=== PATIENT | male | born 1955 | race Caucasian/White ===

== ENCOUNTER 2022-04-16 10:49 | Day surgery (SDC) | payer OTHER, SELFPAY ==
[2022-04-14 14:53] VITALS: BMI 29.0
[2022-04-16] VITALS (14 sets, daily range): BP systolic 114–152; BP diastolic 59–90; PULSE 72–93; RESP 10–20; TEMP 35.9–37.2; O2SAT 88–96; BMI 29.0
--- NOTE | 2022-04-16 | PATH_ITS ---
[facility] Accession Number: [id number] No. of containers..01 Tissue . 01 Material submitted: . gallbladder - GALLBLADDER . 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 Cholelithiasis. No dysplasia or neoplasia identified. See comment. [facility] 04/24/2022 1054 Local . 01 Comment: Additonal secions were submitted for microscopic evaluation. Selected slides (A1) from this case has also been reviewed by Dr. Deangelo Wellington, gastrointestinal pathologist, who concurs with the interpretation of pyloric gland metaplasia. . 01 Electronically signed: . Barb Badillo MD, Pathologist NPI- [id number] . 01 Gross description: . The specimen is received in formalin labeled with the patient's name, , and gallbladder, and consists of a disrupted gallbladder measuring 9.9 x 2.8 x 2.0 cm. The serosa is robertson and smooth while the hepatic surface is roughened and significant for a full-thickness defect measuring 1.0 cm in greatest dimension. The cystic duct is received closed with a clamp, is inked blue, and no pericystic lymph node is identified. The lumen contains green viscous bile and numerous black to green faceted calculi measuring up to 1.2 cm in greatest dimension grossly obstructing the cystic duct. The mucosa is green to brown and velvety with multiple pinpoint yellow areas of discoloration consistent with cholesterol deposits and a yellow-green polypoid structure measuring 0.3 cm in greatest dimension. No additional polyps or lesions are identified, and the brink average 0.3 cm thick. System Controller sections to include the cystic duct margin and full-thickness sections with polyp are submitted in cassette A1. ([id number]) . . Additional sections are submitted in cassettes A2-A4. ([id number]) /MRV 04/22/2022 0931 Local . 01 Pathologist provided ICD-10: K42.9, K80.50, K80.10 . 01 CPT . 544663 Specimen Comment: A courtesy copy of this report has been sent to [phone] Performed at: 01 [facility] [address] [place] [address], [place], [place] [id number] MD Heladio Conroy MD Phone: [phone]
[2022-04-16] MEDS: LACTATED RINGERS 1,000 ML 42 ML IV ×2 (11:35→13:22)
--- NOTE | 2022-04-16 11:51 | PM.HP.1 ---
History of Present Illness History of Present Illness Date Patient Seen: 04/16/22 Chief complaint: Laparoscopic Cholecystectomy Narrative: 66-year-old man with biliary colic and a large umbilical hernia here for laparoscopic cholecystectomy and umbilical hernia repair. No interval changes in health. Please refer the H and P from February 2022 for further detail. Patient History Medical History Anxiety Bladder stones COVID-19 virus infection (02/20/22) Elevated cholesterol Enlarged prostate Headache Surgical History H/O wrist surgery (2019) History of bladder surgery (2000) History of prostate surgery (2015) Family & Social History Social History: household members spouse lives independently Yes Tobacco & Substance use: Tobacco type cigarettes Smoking Status Current every day smoker alcohol intake never Substance Use Type does not use Meds Home Medications and Allergies Home Medications Medication Instructions Recorded Confirmed Type No Known Home Medications 02/27/22 04/14/22 History Allergies Allergy/AdvReac Type Severity Reaction Status Date / Time No Known Drug Allergies Allergy Verified 04/16/22 10:51 Exam Vital Signs (past 8 hours): - 04/16/22 11:19 Temperature 98.9 F Pulse Rate 88 Respiratory Rate 18 Blood Pressure 150/90 H Pulse Oximetry 96 Oxygen Delivery Method Room Air Oxygen Delivery Method Room Air Narrative Exam Narrative: General adult male alert oriented no acute distress Abdomen soft nontender nondistended Assessment & Plan Assessment and plan (1) Biliary colic: Status: Acute (2) Umbilical hernia: Qualifiers: Obstruction and gangrene presence: without obstruction or gangrene Qualified Code(s): K42.9 - Umbilical hernia without obstruction or gangrene Status: Acute Assessment & Plan narrative: 66-year-old man with biliary colic and a large umbilical hernia here for elective laparoscopic cholecystectomy and umbilical hernia repair. Overview of the operation was again discussed with the patient. Operative risks including bleeding, infection, damage to surrounding structures including but not limited to biliary system, hernia recurrence were discussed. His questions have been answered he is in agreement with this plan. He provides his written and verbal consent to proceed. Time Spent With Patient Critical Care time: I spent a total of [] minutes of critical care time on this patient's care today; this time is exclusive of procedural time.
[2022-04-16] MEDS: CEFAZOLIN 2 GM/100 ML PREMIX 100 ML IV (12:12)
[2022-04-16] MEDS: BUPIVACAINE 0.5% W/ EPI (PF) 30 ML VIAL INJ (12:39)
[2022-04-16] MEDS: fentaNYL 100 MCG/2 ML INJ IV ×2 (14:16→14:20)
[2022-04-16] MEDS: HYDROMORPHONE 2 MG INJ IV ×4 (14:26→15:12)
[2022-04-16] MEDS: ALBUTEROL/IPRATROPIUM 3 ML AMPUL INH (14:30)
[2022-04-16] MEDS: ONDANSETRON 4 MG/2 ML INJ IV ×2 (14:50→15:06)
--- NOTE | 2022-04-16 15:15 | SUR.PHASEI ---
Addendum entered by Supa Corrigan R.N. 04/16/22 15:16: Zofran provided. VVO reglan, toradol and IV tylenol. Original Note: Dr. Salcedo notified patient still reporting significant pain but is starting to see improvement. Also, reported nausea, both doses of
[2022-04-16] MEDS: KETOROLAC 30 MG/ML VIAL IV (15:29)
[2022-04-16] MEDS: METOCLOPRAMIDE 10 MG/2 ML INJ IV (15:29)
--- NOTE | 2022-04-16 15:36 | SUR.PHASEI ---
IS provided, instructions given. 1500mls reached.
--- NOTE | 2022-04-16 15:37 | PM.OP.1 ---
Operative Date/Time/Diagnoses Date of procedure: 04/16/22 Time of procedure: 15:37 Pre-op diagnosis: Biliary colic Umbilical hernia Post-op diagnosis: same Procedure & Clinicians Procedure: laparoscopic cholecystectomy Open umbilical hernia repair Same procedure as scheduled: Yes Indications: 66M with biliary colic and a large partially reducible umbilical hernia Surgeon: Leo Horton Click Yes if Unassisted: Yes Anesthesia Type: General Operative Notes Findings: 2 cm fascial defect of the umbilicus containing incarcerated omentum, critical view of safety established Specimen(s): other (gallbladder) Estimated Blood Loss (mL): 100 Procedure in detail: The patient was placed supine on the table and bilateral lower extremity compression devices were applied. Anesthesia was induced they were intubated with an endotracheal tube and received 2g of Ancef. A time-out was performed. They were prepped and draped in sterile fashion. A circular infraumbilical incision was made, there was a large umbilical hernia. There was non reducible but viable omentum too large to reduce. The omentum was ligated with Vicryl and then transceted. The stump of omentum reduced spontaneously. A blunt tip 12mm balloon trocar was then inserted, pneumoperitoneum was established and inspection of the abdomen demonstrated no evidence of injury. They were placed head up and right side up and then a 11 mm port was placed high in the epigastrium and two 5mm in the right upper quadrant. The gallbladder was grasped by the fundus and retracted over the liver and retracted laterally by the infundibulum. The gallbladder was not acutely inflammed. Using electrocautery the lateral plane between the gallbladder and the liver was opened towards the fundus. The gallbladder was then retracted laterally and the medial plane was developed in the same manner. With the gallbladder mobilized the bottom of the cystic plate was visualized. The hepatocystic triangle was meticulosly skeletonized of all fat and fibrous tissue from both the front and the back. Only two structures were then clearly seen entering the gallbladder the cystic duct and the cystic artery. With the critical view of safety fully established the cystic duct was clipped twice proximally and once distally using the 10 mm weck hemo clip applied under direct visualization and then sharply divided. The cystic artery was divided in the same fashion. The gallbladder was removed from the liver bed using electro cautery. The liver bed was then inspected for hemostasis and this was achieved. The abdomen was irrigated with sterile saline and inspection was made that showed the clips in good position. The specimen was removed using Endo-Catch. The abdomen was desufflated. Using blunt dissection I carefully carefully freed the hernia sac from beneath the fascia defect in order to accomodate the mesh. The fascia defect was 2 cm in maximal diameter. A Bard Ventralex ST hernia patch 4 cm was inserted beneath the fascia defect and above the peritoneum in a sublay position. The mesh was anchored in multiple locations using Ethibond suture to the fascia and the fascial defect was closed over the mesh. The umbilical skin was tacked to the subcutaneous tissues and then the remainder of the subcutaneous tissues were reapproximated using 3 0 Vicry,l skin closed with 4 0 Monocryl followed by the application of Dermabond. Sponge instrument count at the end of the operation was correct. Patient tolerated procedure well was extubated and transferred to postoperative care unit in stable condition. Complications: none Post-operative Condition: stable Disposition: same day surgery
--- NOTE | 2022-04-16 17:09 | SUR.PHASEII ---
Patient evaluated by Dr. Salcedo. Patient reported O2 sats 90-93% at home and expressed his desire to discharge. Patient may discharge per MD.
== END 2022-04-16 16:59 | disposition home or self-care (01) ==
PROVIDERS: PCP Internal Medicine; Referring Provider Surgery; Visit Provider Surgery
PROC: 0FT44ZZ Resection of Gallbladder, Percutaneous Endoscopic Approach (ICD-10-PCS; CPT 47562; principal; 2022-04-16 12:15)
PROC: (CPT 47562; 2022-04-16 12:15)
DX: K80.10 Calculus of gallbladder with chronic cholecystitis without obstruction (principal); K42.0 Umbilical hernia with obstruction, without gangrene
CPT/HCPCS: 47562; 49591; 82962; J0330; J0690; J1100; J1170; J1885; J2405; J2704; J2765; J3010